=== PATIENT | male | born 1950 | race Caucasian/White ===

== ENCOUNTER 2019-04-20 05:16 | Day surgery (SDC) ==
[2019-04-14 17:31] LABS: URINE SOURCE CLEAN CATCH
[2019-04-14 17:35] LABS: BASO# 0.03 X1000 (0.0-0.2); BASO% 0.4 % (0.0-0.8); BILIRUBIN URINE NEGATIVE (NEGATIVE); BLOOD URINE NEGATIVE (NEGATIVE); COLOR YELLOW; EOS# 0.36 X1000 (0.0-0.7); EOS% 4.3 % (0.0-10.0); GLUCOSE URINE TRACE mg/dL (NEGATIVE); HEMATOCRIT 44.3 % (42.0-52.0); HEMOGLOBIN 14.4 g/dL (14.0-18.0); KETONE URINE NEGATIVE (NEGATIVE); LEUKOCYTES URINE NEGATIVE (NEGATIVE); LYMPH# 2.88 X1000 (1.2-3.4); MCH 28.7 PG (27-31); MCHC 32.5 g/dL (33-37); MCV 88.4 FL (81-99); MONO# 0.64 X1000 (0.11-0.59); MONO% 7.6 % (1.7-9.3); NEUT# 4.55 X1000 (1.4-6.5); NEUT% 53.7 % (42.2-75.2); NITRITE URINE NEGATIVE (NEGATIVE); PLT 213 X1000 (130-400); PROTEIN URINE NEGATIVE (NEGATIVE); RBC 5.01 XMIL (4.7-6.1); RDW 12.9 % (11.5-14.5); SP GRAVITY URINE 1.015; TURBIDITY URINE CLEAR (CLEAR); UR EPITHELIAL CELLS <10 /HPF (<10); URINE BACTERIA NEGATIVE /HPF; URINE RBC <10 /HPF (<10); URINE WBC <10 /HPF (<10); UROBILINOGEN URINE NORMAL (NORMAL); WBC 8.46 X1000 (4.8-10.8)
--- NOTE | 2019-04-14 17:41 | EKG Report ---
Test Performed on : 04/14/2019 5:11:25 PM Test Reason : PAT Blood Pressure : / mmHG Vent. Rate : 066 BPM Atrial Rate : 066 BPM P-R Int : 158 ms QRS Dur : 100 ms QT Int : 374 ms P-R-T Axes : 071 086 058 degrees QTc Int : 392 ms Normal sinus rhythm. Normal ECG No previous ECGs available Confirmed by James BOWLING, Brown ([id number]) on 04/14/2019 5:42:51 PM
[2019-04-14 17:46] LABS: HEMOGLOBIN A1C 7.2 % (4.8-6.0); INR 1.05; PROTIME 13.8 Seconds (11.0-16.0)
[2019-04-14 17:47] LABS: PTT 32.6 Seconds (22.3-41.8)
[2019-04-14 18:05] LABS: ALBUMIN 4.3 g/dL (3.5-5.0); CALCIUM 9.1 mg/dL (8.8-10.2); CREATININE 1.4 mg/dL (0.7-1.2); POTASSIUM 4.8 mmol/L (3.5-5.1)
[2019-04-20] MEDS ORDERED: REGLAN ONE (06:01)
[2019-04-20] MEDS ORDERED: PEPCID ONE (06:01)
[2019-04-20] MEDS ORDERED: COLACE ONE (06:01)
[2019-04-20] MEDS ORDERED: CELEBREX ONE (06:01)
[2019-04-20] MEDS ORDERED: LYRICA ONE (06:01)
[2019-04-20] MEDS ORDERED: KEFZOL 1 GM/D5W 2 GM/100 ML IVPB ONE (06:02)
[2019-04-20] MEDS ORDERED: LR 1,000 ML ONE (06:02)
[2019-04-20] MEDS ORDERED: FENTANYL ONE (06:07)
[2019-04-20] MEDS ORDERED: DIPRIVAN 1% ONE ×4 (06:07→09:02)
[2019-04-20] MEDS ORDERED: VERSED ONE (06:07)
[2019-04-20] MEDS ORDERED: DURAMORPH ONE (06:35)
[2019-04-20] MEDS ORDERED: TORADOL ONE (06:35)
[2019-04-20] MEDS ORDERED: MARCAINE 0.25% PF ONE (06:35)
[2019-04-20] MEDS ORDERED: VANCOMYCIN ONE (06:35)
[2019-04-20] MEDS ORDERED: SODIUM CHLORIDE 0.9% ONE (06:36)
[2019-04-20] MEDS ORDERED: NEOSPORIN G.U. IRRIGANT ONE (06:36)
[2019-04-20] MEDS ORDERED: EXPAREL 1.3% ONE (06:36)
[2019-04-20] MEDS ORDERED: CYKLOKAPRON 1,000 MG/NS 2,000 MG/200 ML IVPB ONE (06:36)
[2019-04-20] MEDS ORDERED: OFIRMEV 1000 MG/ISOTONIC SOLN 1,000 MG/100 ML BOTTLE ONE (08:32)
[2019-04-20] MEDS ORDERED: DECADRON ONE (08:32)
[2019-04-20] MEDS ORDERED: ZOFRAN ONE (08:32)
[2019-04-20] MEDS ORDERED: NS 1,000 ML ONE ×2 (09:34→09:37)
--- NOTE | 2019-04-20 10:16 | Diag Imaging Result Doc PS360 ---
KNEE 1-2 VIEWS-LEFT - 04/20/2019 INDICATION: L TKA TECHNIQUE: Two views COMPARISON: 02/22/2016 FINDINGS: There has been left total knee arthroplasty with patellar resurfacing. Alignment is anatomic. No hardware fracture or loosening. IMPRESSION: No complication. Electronically signed by Jorge Yip 04/20/2019 10:13 AM
[2019-04-20] MEDS ORDERED: ZOFRAN ODT PO PRN (10:30)
[2019-04-20] MEDS ORDERED: MORPHINE IV PRN ×3 (10:30)
[2019-04-20] MEDS ORDERED: OXY IR PO PRN (10:30)
[2019-04-20] MEDS ORDERED: ZOFRAN IV PRN (10:30)
[2019-04-20] MEDS: TYLENOL PO SCH ×2 (14:55→21:49)
[2019-04-20] MEDS: KEFZOL 2 GM/D5W 2 GM/50 ML IVPB IV SCH (14:55)
[2019-04-20] MEDS: ULTRAM PO SCH ×2 (14:55→21:50)
[2019-04-20] MEDS: NS 1,000 ML IV SCH ×2 (14:57→21:58)
--- NOTE | 2019-04-20 17:01 | OPERATIVE NOTE ---
PROCEDURE DATE: 04/20/2019 PREOPERATIVE DIAGNOSIS: Degenerative joint disease, left knee. POSTOP DIAGNOSIS: Degenerative joint disease, left knee. PROCEDURE PERFORMED: Left total knee replacement. SURGEON: Krys Gunter MD. WORKERS COMPENSATION CLAIMS SUPERVISOR: BRII Gaines. Mr. Almazan was necessary for proper retraction, manipulation, and exposure during the case. ANESTHESIA: Spinal. COMPLICATION: None. PROCEDURE IN DETAIL: A 68-year-old male presents for left total knee replacement. Risks, benefits, and no guarantees were discussed and the patient is willing to proceed. He was taken to the operating room and satisfactory anesthesia obtained. The left leg was prepped and draped in usual sterile fashion. A time-out was taken to confirm operative site, procedure, and patient. The leg was wrapped with an Esmarch and tourniquet inflated to 300 mmHg. A midline incision was made over the front of the knee followed by a quad tendon sparing arthrotomy. The patella was everted and resurfaced with freehand technique and subluxed laterally. The knee was flexed. An intramedullary hole made in the distal femur and the distal femoral cutting block secured in 5 degrees of valgus. Distal femoral resection was made. The femur was then sized to a size 7 DePuy Attune femoral implant. The 4 in 1 block was secured and the anterior, posterior, and chamfer cuts sequentially made. A notch was created for posterior stabilized design using the provided notch guide. Any remaining osteophytes were debrided from the femur. The knee was flexed and a PCL retractor placed behind the tibia to protect the neurovascular bundle. Tibial cutting block was secured with extramedullary alignment and the tibial resection made. Flexion-extension gaps were equal with roughly 6 mm thick polyethylene bearing. Tibia was sized to a size 7 tibial tray. A trial reduction was performed with a 7 tibial tray, a 6 polyethylene bearing and a 7 posterior stabilized femoral component. Good range of motion and stability was achieved. The patella was sized to a 38 medialized dome patella. Drill holes were placed for the patellar implant and femoral implant and the trial components removed. The bony surfaces were thoroughly irrigated with pulsatile lavage and dried. Cement with a gram of vancomycin was utilized to cement a size 7 rotating platform tibial tray, a size 7 left posterior stabilized femoral component, and a 38 medialized dome patella. While the cement cured, the joint capsule was injected with Exparel for pain management and Hemovac drain placed. After curing of the cement any excess cement was removed with an osteotome. A 6 mm thick size 7 posterior stabilized rotating platform bearing was inserted in the tibial tray and the knee reduced. Final range of motion was 0 to 120 degrees with midline patellar tracking. The arthrotomy was copiously irrigated and then closed over the drain with #1 Vicryl in the arthrotomy, 2-0 Vicryl in the subcutaneous and Prineo skin closure on the skin surface. Sterile dressings were applied and the tourniquet released with good return of capillary blood flow. The patient was recovered from anesthesia and transferred to recovery room in stable condition. Instrument count and sponge count was correct at the time of closure. cc: Johnathan Gunter MD
[2019-04-20] MEDS: OXY IR PO PRN (19:33)
[2019-04-20] MEDS ORDERED: AMBIEN PO SCH (21:00)
--- NOTE | 2019-04-20 21:19 | ORTHOPAEDICS PROGRESS NOTE ---
DATE: 04/20/2019 SUBJECTIVE: Mr. Syed is seen status post total knee replacement. At the present time he is up, ambulating in the [facility]. OBJECTIVE: His postoperative x-rays look good. The incision and bandages are clean and dry. He has motor and sensory intact. There are no signs of active bleeding. ASSESSMENT AND PLAN: We will plan on continuing immobilizing and possibly discharging him in the near future. Presently he appears to be stable. cc: Johnathan Gunter MD
[2019-04-20] MEDS: PERIDEX MT SCH (21:48)
[2019-04-20] MEDS: COLACE PO SCH (21:49)
[2019-04-20] MEDS: CELEBREX PO SCH (21:50)
[2019-04-21] MEDS: KEFZOL 2 GM/D5W 2 GM/50 ML IVPB IV SCH (00:04)
[2019-04-21] MEDS: NS 1,000 ML IV SCH (02:05)
[2019-04-21] MEDS: TYLENOL PO SCH ×2 (04:45→08:25)
[2019-04-21] MEDS: ULTRAM PO SCH (04:46)
[2019-04-21 06:52] LABS: HEMATOCRIT 34.5 % (42.0-52.0); HEMOGLOBIN 11.3 g/dL (14.0-18.0)
[2019-04-21 07:14] LABS: CREATININE 1.5 mg/dL (0.7-1.2)
[2019-04-21 07:43] VITALS: BP 138/69
[2019-04-21] MEDS: OXY IR PO PRN (08:23)
[2019-04-21] MEDS: PERIDEX MT SCH (08:24)
[2019-04-21] MEDS: CELEBREX PO SCH (08:25)
[2019-04-21] MEDS: COLACE PO SCH (08:25)
[2019-04-21] MEDS ORDERED: PEPCID PO SCH (09:00)
[2019-04-21] MEDS ORDERED: GLUCOPHAGE PO SCH (09:00)
[2019-04-21] MEDS ORDERED: SYNTHROID PO SCH (09:00)
[2019-04-21] MEDS ORDERED: GLUCOTROL XL PO SCH (09:00)
[2019-04-21] MEDS ORDERED: ASPIRIN PO SCH (09:00)
[2019-04-21] MEDS ORDERED: ZOCOR PO SCH (09:00)
[2019-04-21] MEDS ORDERED: COZAAR PO SCH (09:00)
--- NOTE | 2019-04-21 11:51 | ORTHOPAEDICS PROGRESS NOTE ---
DATE: 04/21/2019 SUBJECTIVE DATA: Mr. Syed is seen postop day 1 of his left total knee arthroplasty. He reports he is doing well at this time. He states his pain is only 3/10 at this time. He denies nausea, vomiting, or any upset stomach. OBJECTIVE DATA: There is good sensation in the left lower extremity. The bandages are clean and dry. Drain is intact. There is good pedal pulses. There is negative Homans sign. Vital signs have been stable. ASSESSMENT: Degenerative joint disease, left knee with left total knee arthroplasty. PLAN: We will plan to send Mr. Syed home today with prescriptions for outpatient therapy as well as aspirin 325 daily for DVT prophylaxis. We will also given a prescription for [place] 10 for pain. I have also written him some Bactrim DS twice daily for infection prevention as well as some Phenergan for some nausea in case he gets nauseated. He will need to follow up in office in roughly 10 to 14 days. We will check back on him then. Dictated by BRII Gaines for Johnathan Gunter MD cc: BRII Gaines MD
== END 2019-04-21 12:33 | disposition home or self-care (01) ==
LOC: 4N 05:16 → OR 05:16
PROVIDERS: ATTEND Orthopaedic Surgery Adult Reconstructive Orthopaedic Surgery